=== PATIENT | female | born 2000 | race African-American/Black ===

== ENCOUNTER 2023-10-28 16:08 | Emergency (ER) | payer OTHER ==
[2023-10-28 16:23] VITALS: BMI 24.2
[2023-10-28] MEDS: SODIUM CHLORIDE 0.9% 500 ML INFUS.BAG IV ONE (17:30)
[2023-10-28] MEDS: ONDANSETRON 4 MG/2 ML VIAL IVPUSH ONE (17:30)
[2023-10-28] MEDS: FAMOTIDINE 20 MG/50 ML IVPB 20 MG/50 ML MG IVPB ONE (17:30)
[2023-10-28 18:05] LABS: BASO % 0.7 % (0-2.0); EOS % 0.2 % (0-4.5); HEMATOCRIT 44.2 % (32.4-45.2); HEMOGLOBIN 15.1 GM/dL (10.7-15.3); LYMPH % 32.8 % (8-40); MCH 30.7 pg (25.7-33.7); MCHC 34.1 g/dl (32.0-36.0); MEAN CELL VOLUME 90.1 fl (80-96); MEAN PLT VOLUME 9.3 fl (7.5-11.1); MONO % 15.3 % (3.8-10.2); PLATELET COUNT 234 10^3/uL (134-434); RDW 13.7 % (11.6-15.6); WHITE BLOOD COUNT 3.5 K/mm3 (4.0-10.0)
[2023-10-28 18:07] LABS: EPI CELLS 25 /uL (0-25.1); HYALINE CASTS 2 /uL (0-3.1); URINE APPEARANCE CLEAR; URINE BACTERIA 66 /uL (0-1359); URINE BILIRUBIN NEGATIVE (NEGATIVE); URINE COLOR DK YELLOW; URINE GLUCOSE (UA) NEGATIVE (NEGATIVE); URINE KETONE TRACE (NEGATIVE); URINE LEUK ESTERASE NEGATIVE (NEGATIVE); URINE NITRITE NEGATIVE (NEGATIVE); URINE PROTEIN 1+ (NEGATIVE); URINE RBC 26 /uL (0-23.9); URINE WBC 15 /uL (0-25.8)
[2023-10-28 18:14] LABS: HCG,QUALITATIVE URINE Negative
[2023-10-28 18:28] LABS: POTASSIUM 3.6 mmol/L (3.5-5.1)
[2023-10-28 18:31] LABS: CALCIUM 9.3 mg/dL (8.5-10.1)
[2023-10-28 18:32] LABS: ALBUMIN 3.8 g/dl (3.4-5.0); BLOOD UREA NITROGEN 16.1 mg/dL (7-18)
[2023-10-28 18:35] LABS: CREATININE 0.9 mg/dL (0.55-1.3)
[2023-10-28 18:36] LABS: BILIRUBIN,TOTAL 0.6 mg/dL (0.2-1); TOT PROT 7.9 g/dl (6.4-8.2)
[2023-10-28 20:47] VITALS: BP 123/90; PULSE 84; RESP 16; TEMP 98.4
== END 2023-10-28 23:36 | disposition home or self-care (01) ==
LOC: JER 16:08
PROC: 3E033GC Introduction of Other Therapeutic Substance into Peripheral Vein, Percutaneous Approach (ICD-10-PCS; principal; 2023-10-28)
PROC: 3E033GC Introduction of Other Therapeutic Substance into Peripheral Vein, Percutaneous Approach (ICD-10-PCS; 2023-10-28)
DX: R11.2 Nausea with vomiting, unspecified (principal); R42 Dizziness and giddiness; K52.9 Noninfective gastroenteritis and colitis, unspecified; Z20.822 Contact with and (suspected) exposure to COVID-19
CPT/HCPCS: 0241U-QW; 36415; 76705-TC; 80053; 81003; 83690; 84703; 85025; 87086; 99284-25

== ENCOUNTER 2024-09-07 10:07 | Emergency (ER) | payer OTHER ==
[2024-09-07 10:24] VITALS: BP 128/83; PULSE 93; RESP 18; TEMP 98.4; BMI 24.3
[2024-09-07 11:36] LABS: BASO % 1.3 % (0-2.0); EOS % 1.9 % (0-4.5); HEMATOCRIT 35.7 % (32.4-45.2); HEMOGLOBIN 11.5 GM/dL (10.7-15.3); LYMPH % 41.7 % (8-40); MCH 27.7 pg (25.7-33.7); MCHC 32.2 g/dl (32.0-36.0); MEAN CELL VOLUME 86.2 fl (80-96); MEAN PLT VOLUME 8.3 fl (7.5-11.1); MONO % 13.3 % (3.8-10.2); NEUT % 41.8 % (42.8-82.8); PLATELET COUNT 212 10^3/uL (134-434); RBC 4.14 M/mm3 (3.60-5.2); RDW 15.9 % (11.6-15.6); WHITE BLOOD COUNT 4.3 K/mm3 (4.0-10.0)
[2024-09-07 11:46] LABS: URINE APPEARANCE CLEAR; URINE BILIRUBIN NEGATIVE (NEGATIVE); URINE COLOR YELLOW; URINE GLUCOSE (UA) NEGATIVE (NEGATIVE); URINE KETONE TRACE (NEGATIVE); URINE LEUK ESTERASE NEGATIVE (NEGATIVE); URINE NITRITE NEGATIVE (NEGATIVE); URINE PROTEIN NEGATIVE (NEGATIVE); URINE UROBILINOGEN 0.2 mg/dL (0.2-1.0)
[2024-09-07 11:47] LABS: HCG,QUALITATIVE URINE Negative
[2024-09-07 12:04] LABS: POTASSIUM 3.8 mmol/L (3.5-5.1)
[2024-09-07 12:06] LABS: CALCIUM 9.5 mg/dL (8.5-10.1)
[2024-09-07 12:07] LABS: ALBUMIN 3.9 g/dl (3.4-5.0); BLOOD UREA NITROGEN 9.1 mg/dL (7-18)
[2024-09-07 12:09] LABS: CREATININE 0.7 mg/dL (0.55-1.3)
[2024-09-07 12:11] LABS: BILIRUBIN,TOTAL 0.5 mg/dL (0.2-1); TOT PROT 7.3 g/dl (6.4-8.2)
== END 2024-09-07 16:38 | disposition home or self-care (01) ==
LOC: JER 10:07
DX: N83.201 Unspecified ovarian cyst, right side (principal); R10.31 Right lower quadrant pain; M54.50 Low back pain, unspecified
CPT/HCPCS: 36415; 74177-TC; 80053; 81003; 84703; 85025; 87086; 99285-25; Q9967